=== PATIENT | male | born 1995 ===

== ENCOUNTER → 2016-07-08 | Outpatient (CLI) | payer BC, OTHER | END | disposition home or self-care (01) | LOC: C.RDSM 13:49 | PROVIDERS: ATTEND Physical Medicine & Rehabilitation | DX: S63.250A Unspecified dislocation of right index finger, initial encounter (principal); X58.XXXA Exposure to other specified factors, initial encounter ==

== ENCOUNTER → 2016-11-15 | Outpatient (CLI) | payer BC, OTHER | END | disposition home or self-care (01) | LOC: C.RDSM 10:44 | PROVIDERS: ATTEND Physical Medicine & Rehabilitation | DX: S63.260A Dislocation of metacarpophalangeal joint of right index finger, initial encounter (principal); X58.XXXA Exposure to other specified factors, initial encounter ==

== ENCOUNTER → 2016-12-28 | Outpatient (CLI) | payer BC, OTHER | END | disposition home or self-care (01) | LOC: C.RDSM 09:48 | PROVIDERS: ATTEND Physical Medicine & Rehabilitation | DX: M25.572 Pain in left ankle and joints of left foot (principal) ==